=== PATIENT | female | born 1985 | race Hispanic/Latino ===

== ENCOUNTER 2016-08-16 10:47 | Outpatient (CLI) | payer MEDICAID ==
--- NOTE | 2016-08-16 11:59 | Ultrasound Report ---
COMPLETE OB ULTRASOUND: Gestation: [place] Position: Breech Amniotic Fluid: Normal Placenta: Anterior Placental Grade: One Heart Rate: 142 BPM Cervical length: 7.4 cm (Normal > 3 cm) NEUROANATOMY VISUALIZED: Choroid Plexus Cisterna Magnum Cerebellum Lateral Ventricle ANATOMY VISUALIZED: Stomach Kidneys Bladder Diaphragm 4 Chamber Heart Heart 3 Vessel Cord Abd. Cord Insert SPINE VISUALIZED: Longitudinal Transverse The following are not demonstrated due to maternal body habitus or lie: AP spine BPD: 4.6 cm = 19 w 5 d HC: 18.2 cm = 20 w 4 d AC: 15.7 cm = 20 w 6 d FL: 3.4 cm = 20 w 5 d HC/AC Ratio: 1.2 Cephalic Index: 67 Estimated Weight: 371 grams LMP: Uncertain Clinical age = 21 w 4 d EDC: 12/23/16 US Gest. Age = 20 w 3 d EDC: 12/31/16
== END 2016-08-16 10:48 | disposition home or self-care (01) ==
LOC: SPVWC 10:47
PROVIDERS: ATTEND Obstetrics & Gynecology
DX: Z36 Encounter for antenatal screening of mother (principal); O32.1XX0 Maternal care for breech presentation, not applicable or unspecified; Z3A.20 20 weeks gestation of pregnancy
CPT/HCPCS: 76805